=== PATIENT | female | born 1985 | race American Indian/Alaskan Native ===

== ENCOUNTER 2021-08-26 02:55 | Emergency (ER) | payer SELFPAY ==
[2021-08-26] MEDS ORDERED: SODIUM CHLORIDE 0.9% 1000 ML 1,000 ML IV ONE (06:45)
[2021-08-26] MEDS ORDERED: ONDANSETRON 4 MG/2 ML INJ IV ONE (06:45)
[2021-08-26 07:51] LABS: Basophils % (Auto) 0.2 % (0.0-1.8); Hematocrit 36.8 % (30.3-42.9); Hemoglobin 11.7 gm/dl (10.1-14.3); Lymphocytes # (Auto) 1.1 K/mm3 (1.2-5.4); Lymphocytes % (Auto) 8.5 % (13.4-35.0); Mean Corpuscular HGB Conc 32 % (30-34); Mean Corpuscular Volume 88 fl (79-97); Monocytes # (Auto) 0.7 K/mm3 (0.0-0.8); Monocytes % (Auto) 5.2 % (0.0-7.3); Platelet Count 400 K/mm3 (140-440); Red Blood Count 4.16 M/mm3 (3.65-5.03); Red Cell Distribution Width 14.9 % (13.2-15.2)
[2021-08-26 08:35] LABS: Alanine Aminotransferase 17 units/L (7-56); Albumin 4.2 g/dL (3.9-5); BUN/Creatinine Ratio 12; Blood Urea Nitrogen 11 mg/dL (7-17); Calcium 8.8 mg/dL (8.4-10.2); Hemolysis Index 3
--- NOTE | 2021-08-26 10:43 | Emergency Department Report ---
ED N/V/D HPI - General Chief complaint: Nausea/Vomiting/Diarrhea Stated complaint: NAUSEA,VOMITING Time Seen by Provider: 08/26/21 06:45 Source: patient Mode of arrival: Stretcher Limitations: No Limitations - History of Present Illness Initial comments: Patient is a 36-year-old female presenting to ED with complaint of nausea and vomiting upon awakening this morning around 1 AM. She reports multiple involuntary episodes of vomiting. Denies any recent illness, sick contacts fever or chills. - Related Data Allergies Allergy/AdvReac Type Severity Reaction Status Date / Time aspirin Allergy Vomiting Verified 08/07/13 19:33 NSAIDS (Non-Steroidal Allergy Hives Verified 08/07/13 19:33 Anti-Inflamma ED Review of Systems ROS: Stated complaint: NAUSEA,VOMITING Other details as noted in HPI Comment: All other systems reviewed and negative Constitutional: denies: chills, fever Respiratory: denies: cough, shortness of breath, wheezing Cardiovascular: denies: chest pain, palpitations Gastrointestinal: nausea, vomiting Musculoskeletal: denies: back pain, joint swelling, arthralgia Skin: denies: rash, lesions Neurological: denies: headache, weakness, paresthesias Psychiatric: denies: anxiety, depression ED Past Medical Hx - Past Medical History Previous Medical History?: Yes Hx Headaches / Migraines: Yes - Surgical History Past Surgical History?: Yes Hx Breast Surgery: Yes (reduction) Additional Surgical History: x2 - Social History Smoking Status: Never Smoker Substance Use Type: None ED Physical Exam - General Limitations: No Limitations General appearance: alert, in no apparent distress - Head Head exam: Present: atraumatic, normocephalic - Respiratory Respiratory exam: Present: normal lung sounds bilaterally. Absent: respiratory distress - Cardiovascular Cardiovascular Exam: Present: regular rate, normal rhythm, normal heart sounds - GI/Abdominal GI/Abdominal exam: Present: soft. Absent: distended, tenderness - Rectal Rectal exam: Present: deferred - Neurological Exam Neurological exam: Present: alert, oriented X3 - Psychiatric Psychiatric exam: Present: normal affect, normal mood - Skin Skin exam: Present: warm, dry, intact, normal color ED Course Vital Signs 08/26/21 08/26/21 08/26/21 03:42 03:45 05:00 Temperature 98 F Pulse Rate 110 H 104 H Respiratory 18 18 17 Rate Blood Pressure 135/78 104/63 O2 Sat by Pulse 100 100 98 Oximetry 08/26/21 08/26/21 08/26/21 05:16 05:30 05:46 Temperature Pulse Rate 102 H 101 H 99 H Respiratory 17 15 16 Rate Blood Pressure 105/62 97/62 106/64 O2 Sat by Pulse 100 100 100 Oximetry 08/26/21 08/26/21 08/26/21 06:00 06:16 06:30 Temperature Pulse Rate 100 H 107 H 107 H Respiratory 16 18 17 Rate Blood Pressure 105/65 108/65 109/65 O2 Sat by Pulse 97 98 99 Oximetry 08/26/21 08/26/21 08/26/21 06:46 07:00 07:16 Temperature Pulse Rate 106 H 99 H 101 H Respiratory 19 18 16 Rate Blood Pressure 108/66 107/65 116/71 O2 Sat by Pulse 97 98 97 Oximetry 08/26/21 08/26/21 08/26/21 07:30 07:46 08:00 Temperature Pulse Rate 95 H 96 H 96 H Respiratory 15 15 14 Rate Blood Pressure 116/72 113/71 117/72 O2 Sat by Pulse 98 98 97 Oximetry 08/26/21 08/26/21 08/26/21 08:16 08:30 08:46 Temperature Pulse Rate 92 H 94 H 92 H Respiratory 14 15 15 Rate Blood Pressure 105/68 116/72 106/68 O2 Sat by Pulse 97 100 98 Oximetry 08/26/21 09:36 Temperature Pulse Rate 83 Respiratory 15 Rate Blood Pressure 113/69 O2 Sat by Pulse Oximetry ED Medical Decision Making - Lab Data Result diagrams: 08/26/21 06:54 08/26/21 06:54 - Medical Decision Making Patient presented ED with complaint of vomiting that began this morning. WBC count 13. Remainder of labs grossly unremarkable. Patient given 1 L saline bolus along with 4 mg of IV Zofran. She had no further vomiting episodes while in the emergency department. She is stable for discharge home with return precautions. Critical care attestation.: If time is entered above; I have spent that time in minutes in the direct care of this critically ill patient, excluding procedure time. ED Disposition Clinical Impression: Nausea and vomiting Disposition: HOME / SELF CARE / HOMELESS Is pt being admited?: No Does the pt Need Aspirin: No Condition: Stable Instructions: Nausea and Vomiting, Adult Referrals: PRIMARY CARE, [Primary Care Provider] - 3-5 Days Time of Disposition: 10:43
[2021-08-26 11:27] VITALS: BP 124/59
== END 2021-08-26 11:27 | disposition home or self-care (01) ==
LOC: ED 02:55
DX: R11.2 Nausea with vomiting, unspecified (principal); Z88.6 Allergy status to analgesic agent
CPT/HCPCS: 36415; 80053; 84703; 85025; 96361; 96374; 99284; J2405; J7030